=== PATIENT | male | born 1970 | race Caucasian/White ===

== ENCOUNTER 2018-11-11 23:02 | Inpatient (IN) | payer OTHER ==
[2018-11-12] MEDS ORDERED: NACL 0.9% 3 ML SYG IV (01:00)
[2018-11-12] MEDS ORDERED: ALBUTEROL/IPRATROPIUM (NEB) 3 ML AMP HHN (01:00)
[2018-11-12] MEDS ORDERED: ONDANSETRON 4 MG INJ IV (01:00)
[2018-11-12] MEDS ORDERED: HYDROCODONE/APAP (5/325) TAB PO (01:00)
[2018-11-12] MEDS: HYDROCODONE/APAP (5/325) TAB PO ×2 (02:14→15:46)
[2018-11-12 07:01] LABS: ADD MAN DIFF? NO
[2018-11-12 07:07] LABS: BASOPHIL # 0.1 10^3/ul (0.0-0.1); BASOPHILS % 0.7 % (0.0-2.0); EOSINOPHILS # 0.1 10^3/ul (0.0-0.5); HEMATOCRIT 40.2 % (42.0-52.0); HEMOGLOBIN 12.9 g/dl (14.0-18.0); LYMPHOCYTES # 1.9 10^3/ul (0.8-2.9); LYMPHOCYTES % 28.2 % (15.0-51.0); MEAN CORPUSCULAR HEMOGLOBIN 25.7 pg (29.0-33.0); MEAN CORPUSCULAR HGB CONC 32.1 g/dl (32.0-37.0); MEAN CORPUSCULAR VOLUME 80.1 fl (82.0-101.0); MEAN PLATELET VOLUME 10.1 fl (7.4-10.4); MONOCYTE # 0.7 10^3/ul (0.3-0.9); MONOCYTES % 10.4 % (0.0-11.0); NEUTROPHILS % 58.3 % (39.0-77.0); PLATELET COUNT 374 10^3/UL (140-415); RED BLOOD COUNT 5.02 10^6/ul (4.70-6.10); RED CELL DISTRIBUTION WIDTH 13.1 % (11.5-14.5)
[2018-11-12 07:07] LABS: WHITE BLOOD COUNT 6.8 10^3/ul (4.8-10.8)
[2018-11-12 07:20] LABS: HEMOGLOBIN A1C 13.3 % (0-5.9)
[2018-11-12 07:25] LABS: ALANINE AMINOTRANSFERASE 33 IU/L (13-69); ALBUMIN 3.1 g/dl (3.3-4.9); ALKALINE PHOSPHATASE 82 IU/L (42-121); ANION GAP 5 (5-13); ASPARTATE AMINO TRANSFERASE 24 IU/L (15-46); BILIRUBIN,INDIRECT 0.2 mg/dl (0-1.1); BILIRUBIN,TOTAL 0.2 mg/dl (0.2-1.3); BLOOD UREA NITROGEN 20 mg/dl (7-20); CALCIUM 8.7 mg/dl (8.4-10.2); CARBON DIOXIDE 29 mmol/L (21-31); CHLORIDE 103 mmol/L (97-110); CHOL/HDL RATIO 4.6 RATIO; CHOLESTEROL 172 mg/dl (100-200); CREATINE KINASE 53 IU/L (23-200); CREATININE 0.61 mg/dl (0.61-1.24); Estimated GFR > 60 mL/min (>60); GLUCOSE 274 mg/dl (70-220); HDL CHOLESTEROL 37 mg/dl (27-67); LDL CHOLESTEROL,CALCULATED 99 mg/dl; POTASSIUM 3.8 mmol/L (3.5-5.1); SODIUM 137 mmol/L (135-144); TOTAL PROTEIN 5.9 g/dl (6.1-8.1); TRIGLYCERIDES 182 mg/dl (0-149)
[2018-11-12 07:33] LABS: CK INDEX 0.7; CK-MB 0.36 ng/ml (0.0-2.4)
[2018-11-12 07:38] LABS: TROPONIN-I < 0.012 ng/ml (0.000-0.120)
[2018-11-12] MEDS: ACCU-CHEK XX (07:53)
[2018-11-12] MEDS: metFORMIN 500 MG TAB PO ×2 (08:46→20:49)
[2018-11-12] MEDS: ASPIRIN 81 MG TAB PO (08:46)
[2018-11-12] MEDS: AMLODIPINE 5 MG TAB PO (08:47)
[2018-11-12] MEDS: HEPARIN 5,000 UNIT/1 ML VIAL SC ×2 (09:07→21:00)
[2018-11-12] MEDS: ACETAMINOPHEN 325 MG TAB PO (09:08)
[2018-11-12] MEDS ORDERED: DEXTROSE 50% 50 ML SYRINGE IV ×2 (09:30)
[2018-11-12] MEDS ORDERED: GLUCAGON 1 MG INJ IM (09:30)
[2018-11-12] MEDS ORDERED: GLUCOSE GEL 15 GRAM TUBE BUCCAL (09:30)
[2018-11-12] MEDS ORDERED: GLUCOSE GEL 15 GRAM TUBE PO ×2 (09:30)
[2018-11-12 11:24] LABS: CREATINE KINASE 53 IU/L (23-200)
[2018-11-12 11:38] LABS: CK INDEX 0.7; CK-MB 0.36 ng/ml (0.0-2.4); TROPONIN-I < 0.012 ng/ml (0.000-0.120)
[2018-11-12] MEDS: SOD CHLORIDE 0.9% 1,000 ML IV (11:53)
[2018-11-12] MEDS: INSULIN ASPART [NOVOLOG] 3 ML PEN SC ×4 (11:56→22:47)
[2018-11-12] MEDS: ASA/ACETAMINOPHEN/CAFF TAB PO (19:53)
[2018-11-12] MEDS: ATORVASTATIN 80 MG TAB PO (20:49)
[2018-11-12] MEDS ORDERED: ATORVASTATIN 20 MG TAB PO (21:00)
[2018-11-13] MEDS: ACCU-CHEK XX (02:00)
[2018-11-13] MEDS: INSULIN GLARGINE [LANTus] (100 UNITS/ML) SYG SC ×2 (04:47→21:02)
[2018-11-13] MEDS: INSULIN ASPART [NOVOLOG] 3 ML PEN SC ×5 (07:49→21:03)
[2018-11-13] MEDS: AMLODIPINE 5 MG TAB PO (08:10)
[2018-11-13] MEDS: ASPIRIN 81 MG TAB PO (08:10)
[2018-11-13] MEDS: metFORMIN 500 MG TAB PO ×2 (08:11→17:10)
[2018-11-13] MEDS: HEPARIN 5,000 UNIT/1 ML VIAL SC ×2 (08:13→21:04)
[2018-11-13 08:21] LABS: ADD MAN DIFF? NO
[2018-11-13 08:30] LABS: BASOPHIL # 0.1 10^3/ul (0.0-0.1); EOSINOPHILS # 0.2 10^3/ul (0.0-0.5); EOSINOPHILS % 3.8 % (0.0-7.0); HEMATOCRIT 40.2 % (42.0-52.0); HEMOGLOBIN 13.1 g/dl (14.0-18.0); LYMPHOCYTES # 1.7 10^3/ul (0.8-2.9); LYMPHOCYTES % 34.5 % (15.0-51.0); MEAN CORPUSCULAR HEMOGLOBIN 26.1 pg (29.0-33.0); MEAN CORPUSCULAR HGB CONC 32.6 g/dl (32.0-37.0); MEAN CORPUSCULAR VOLUME 80.2 fl (82.0-101.0); MONOCYTE # 0.6 10^3/ul (0.3-0.9); MONOCYTES % 11.4 % (0.0-11.0); NEUTROPHIL # 2.4 10^3/ul (1.6-7.5); NEUTROPHILS % 48.7 % (39.0-77.0); PLATELET COUNT 326 10^3/UL (140-415); RED BLOOD COUNT 5.01 10^6/ul (4.70-6.10); RED CELL DISTRIBUTION WIDTH 13.1 % (11.5-14.5)
[2018-11-13 08:46] LABS: AMPHETAMINE/METHAMPHETAMINE Negative (NEGATIVE); BARBITURATES Positive (NEGATIVE); BENZODIAZEPINES Negative (NEGATIVE); CANNABINOIDS Negative (NEGATIVE); COCAINE Negative (NEGATIVE); OPIATES Negative (NEGATIVE)
[2018-11-13 09:01] LABS: ANION GAP 5 (5-13); BLOOD UREA NITROGEN 18 mg/dl (7-20); CALCIUM 8.6 mg/dl (8.4-10.2); CARBON DIOXIDE 30 mmol/L (21-31); CHLORIDE 103 mmol/L (97-110); CREATININE 0.54 mg/dl (0.61-1.24); Estimated GFR > 60 mL/min (>60); GLUCOSE 203 mg/dl (70-220); MAGNESIUM 1.9 mg/dl (1.7-2.5); PHOSPHORUS 3.7 mg/dl (2.5-4.9); POTASSIUM 3.8 mmol/L (3.5-5.1); SODIUM 138 mmol/L (135-144)
[2018-11-13] MEDS: AMOXICILLIN/CLAV 875 MG TAB PO ×2 (11:14→21:04)
[2018-11-13] MEDS: ATORVASTATIN 80 MG TAB PO (21:04)
[2018-11-14] MEDS: ACCU-CHEK XX (02:04)
[2018-11-14 06:07] LABS: ADD MAN DIFF? NO
[2018-11-14 06:10] LABS: BASOPHILS % 0.7 % (0.0-2.0); EOSINOPHILS # 0.2 10^3/ul (0.0-0.5); EOSINOPHILS % 2.9 % (0.0-7.0); HEMATOCRIT 39.2 % (42.0-52.0); HEMOGLOBIN 12.9 g/dl (14.0-18.0); LYMPHOCYTES # 1.9 10^3/ul (0.8-2.9); LYMPHOCYTES % 33.9 % (15.0-51.0); MEAN CORPUSCULAR HEMOGLOBIN 26.1 pg (29.0-33.0); MEAN CORPUSCULAR HGB CONC 32.9 g/dl (32.0-37.0); MEAN CORPUSCULAR VOLUME 79.2 fl (82.0-101.0); MEAN PLATELET VOLUME 9.6 fl (7.4-10.4); MONOCYTE # 0.5 10^3/ul (0.3-0.9); MONOCYTES % 9.7 % (0.0-11.0); NEUTROPHIL # 2.9 10^3/ul (1.6-7.5); NEUTROPHILS % 52.4 % (39.0-77.0); PLATELET COUNT 310 10^3/UL (140-415); RED BLOOD COUNT 4.95 10^6/ul (4.70-6.10); RED CELL DISTRIBUTION WIDTH 13.2 % (11.5-14.5)
[2018-11-14 06:10] LABS: WHITE BLOOD COUNT 5.5 10^3/ul (4.8-10.8)
[2018-11-14] MEDS: HYDROCODONE/APAP (5/325) TAB PO ×2 (06:16→11:15)
[2018-11-14 06:50] LABS: ANION GAP 7 (5-13); BLOOD UREA NITROGEN 18 mg/dl (7-20); CALCIUM 8.5 mg/dl (8.4-10.2); CARBON DIOXIDE 27 mmol/L (21-31); CHLORIDE 105 mmol/L (97-110); CREATININE 0.53 mg/dl (0.61-1.24); Estimated GFR > 60 mL/min (>60); GLUCOSE 216 mg/dl (70-220); PHOSPHORUS 3.7 mg/dl (2.5-4.9); POTASSIUM 3.9 mmol/L (3.5-5.1); SODIUM 139 mmol/L (135-144)
[2018-11-14] MEDS: metFORMIN 500 MG TAB PO ×2 (09:09→17:42)
[2018-11-14] MEDS: INSULIN GLARGINE [LANTus] (100 UNITS/ML) SYG SC ×2 (09:10→21:08)
[2018-11-14] MEDS: INSULIN ASPART [NOVOLOG] 3 ML PEN SC ×5 (09:11→21:08)
[2018-11-14] MEDS: AMOXICILLIN/CLAV 875 MG TAB PO ×2 (09:13→21:00)
[2018-11-14] MEDS: AMLODIPINE 5 MG TAB PO (09:13)
[2018-11-14] MEDS: ASPIRIN 81 MG TAB PO (09:13)
[2018-11-14] MEDS: HEPARIN 5,000 UNIT/1 ML VIAL SC ×2 (09:14→21:09)
[2018-11-14] MEDS: ACETAMINOPHEN 325 MG TAB PO (09:14)
[2018-11-14] MEDS: LINAGLIPTIN 5 MG TABLET PO (11:15)
[2018-11-14] MEDS: REPAGLINIDE 2 MG TAB PO ×2 (14:38→17:42)
[2018-11-14] MEDS: KETOROLAC 30 MG INJ IV (16:01)
[2018-11-14] MEDS: NAPROXEN 250 MG TAB PO (21:00)
[2018-11-15] MEDS: ACCU-CHEK XX (02:00)
[2018-11-15 06:17] LABS: ADD MAN DIFF? NO
[2018-11-15] MEDS: PANTOPRAZOLE (EC) 40 MG TAB PO (06:17)
[2018-11-15] MEDS: ACETAMINOPHEN 325 MG TAB PO (06:21)
[2018-11-15 06:22] LABS: WHITE BLOOD COUNT 6.1 10^3/ul (4.8-10.8)
[2018-11-15 06:22] LABS: BASOPHILS % 0.7 % (0.0-2.0); EOSINOPHILS # 0.2 10^3/ul (0.0-0.5); EOSINOPHILS % 2.9 % (0.0-7.0); HEMATOCRIT 39.8 % (42.0-52.0); HEMOGLOBIN 12.9 g/dl (14.0-18.0); LYMPHOCYTES # 1.9 10^3/ul (0.8-2.9); LYMPHOCYTES % 31.6 % (15.0-51.0); MEAN CORPUSCULAR HEMOGLOBIN 26.1 pg (29.0-33.0); MEAN CORPUSCULAR HGB CONC 32.4 g/dl (32.0-37.0); MEAN CORPUSCULAR VOLUME 80.4 fl (82.0-101.0); MEAN PLATELET VOLUME 9.7 fl (7.4-10.4); MONOCYTE # 0.6 10^3/ul (0.3-0.9); MONOCYTES % 10.1 % (0.0-11.0); NEUTROPHIL # 3.3 10^3/ul (1.6-7.5); NEUTROPHILS % 54.2 % (39.0-77.0); PLATELET COUNT 321 10^3/UL (140-415); RED BLOOD COUNT 4.95 10^6/ul (4.70-6.10)
[2018-11-15 06:50] LABS: ANION GAP 6 (5-13); BLOOD UREA NITROGEN 20 mg/dl (7-20); CALCIUM 8.8 mg/dl (8.4-10.2); CARBON DIOXIDE 28 mmol/L (21-31); CHLORIDE 105 mmol/L (97-110); Estimated GFR > 60 mL/min (>60); GLUCOSE 141 mg/dl (70-220); PHOSPHORUS 4.4 mg/dl (2.5-4.9); POTASSIUM 3.7 mmol/L (3.5-5.1); SODIUM 139 mmol/L (135-144)
[2018-11-15] MEDS: metFORMIN 500 MG TAB PO ×2 (08:04→17:30)
[2018-11-15] MEDS: REPAGLINIDE 2 MG TAB PO ×3 (08:05→17:30)
[2018-11-15] MEDS: INSULIN GLARGINE [LANTus] (100 UNITS/ML) SYG SC (08:46)
[2018-11-15] MEDS: INSULIN ASPART [NOVOLOG] 3 ML PEN SC ×3 (08:46→17:30)
[2018-11-15] MEDS: AMLODIPINE 5 MG TAB PO (09:00)
[2018-11-15] MEDS: ASPIRIN 81 MG TAB PO (09:16)
[2018-11-15] MEDS: AMOXICILLIN/CLAV 875 MG TAB PO (09:16)
[2018-11-15] MEDS: NAPROXEN 250 MG TAB PO (09:16)
[2018-11-15] MEDS: LINAGLIPTIN 5 MG TABLET PO (09:16)
[2018-11-15] MEDS: HEPARIN 5,000 UNIT/1 ML VIAL SC (10:39)
[2018-11-16] MEDS ORDERED: AMLODIPINE 10 MG TAB PO (09:00)
== END 2018-11-15 19:16 | disposition home health service (06) | DRG 103 ==
LOC: TEL 23:02
PROVIDERS: Internal Medicine
DX: G43.909 Migraine, unspecified, not intractable, without status migrainosus (principal); G81.91 Hemiplegia, unspecified affecting right dominant side; E11.65 Type 2 diabetes mellitus with hyperglycemia; I10 Essential (primary) hypertension; E78.5 Hyperlipidemia, unspecified; J32.0 Chronic maxillary sinusitis; J32.2 Chronic ethmoidal sinusitis; Z79.4 Long term (current) use of insulin; Z86.73 Personal history of transient ischemic attack (TIA), and cerebral infarction without residual deficits
CPT/HCPCS: 70544; 70549; 70551; 80048; 80053; 80061; 80307; 82550; 82553; 82962; 83036; 83735; 84100; 84443; 84484; 85025; 93306; 93880; 97110; 97116; 97162; 97530